=== PATIENT | male | born 1990 | race Caucasian/White ===

== ENCOUNTER 2023-04-24 09:14 | Emergency (ER) | payer MEDICAID ==
[~2023-04-24] VITALS: Ht 180.3 cm; Wt 81.8 kg
[2023-04-24 09:23] VITALS: TEMP 98.6
[2023-04-24] MEDS ORDERED: OLAN7.5T22 PO (09:26)
[2023-04-24] MEDS ORDERED: MIRT-89 PO (09:26)
[2023-04-24] MEDS ORDERED: CefTRIAXone SODIUM 1 GM/VIAL IM ONE (12:45)
[2023-04-24] MEDS ORDERED: LIDOCAINE/PF 1% 2 ML VIAL IM ONE (12:45)
[2023-04-24] MEDS ORDERED: CEPH-558 PO (14:09)
[2023-04-24 14:25] VITALS: BP 130/78; PULSE 80; RESP 16
== END 2023-04-24 14:34 | disposition home or self-care (01) ==
LOC: EMS 09:23
DX: I88.9 Nonspecific lymphadenitis, unspecified (principal); F41.9 Anxiety disorder, unspecified; F17.210 Nicotine dependence, cigarettes, uncomplicated
CPT/HCPCS: 99285; 70490; 96372; J0696; J3490